=== PATIENT | male | born 1975 | race Caucasian/White ===

== ENCOUNTER 2024-09-13 06:12 | Day surgery (SDC) | payer BC, MEDICARE ==
[~2024-09-13] VITALS: Ht 180.3 cm; Wt 95.6 kg
[~2024-09-13 06:12] MED LIST: ASPI81TA26 PO; CALC250T PO; IRBE150T27 PO; RENA1TAB3 PO; SEVE800T3 PO; [UNRECOGNIZED DRUG - OTHER]
[2024-09-13] MEDS ORDERED: propofoL 200 MG/20 ML VIAL As Ordered ONE (06:42)
[2024-09-13] MEDS ORDERED: LIDOCAINE 2% 100MG/5ML SDV (FOR ANES.) As Ordered ONE (06:56)
[2024-09-13] MEDS ORDERED: GLYCOPYRROLATE INJ 0.2 MG/ML 2 ML VIAL As Ordered ONE (07:03)
[2024-09-13 07:58] VITALS: TEMP 98.6
[2024-09-13 08:14] VITALS: BP 124/74; O2SAT 99
== END 2024-09-13 08:19 | disposition home or self-care (01) ==
LOC: M OPP 06:12
PROVIDERS: ATTEND Surgery
DX: Z12.11 Encounter for screening for malignant neoplasm of colon (principal); Z12.12 Encounter for screening for malignant neoplasm of rectum; I12.0 Hypertensive chronic kidney disease with stage 5 chronic kidney disease or end stage renal disease; N18.6 End stage renal disease; Z99.2 Dependence on renal dialysis; Z79.899 Other long term (current) drug therapy; Z79.82 Long term (current) use of aspirin; Z86.39 Personal history of other endocrine, nutritional and metabolic disease
CPT/HCPCS: 36415; 45378; 84132; J1596